=== PATIENT | male | born 1940 | race Caucasian/White ===

== ENCOUNTER → 2018-11-30 | Outpatient (CLI) | payer MEDICARE ==
[~2018-11-30] MED LIST: HYDR1TAB94 PO; TAMS.4ER PO
[2018-11-30 10:55] LABS: BASOPHILS ABSOLUTE AUTO 0.03 K/mm3 (0.00-0.23); BASOPHILS PERCENT AUTO 0 % (0-2); EOSINOPHILS ABSOLUTE AUTO 0.03 K/mm3 (0.00-0.68); EOSINOPHILS PERCENT AUTO 0 % (0-6); Hematocrit 41.8 % (37.0-53.0); Hemoglobin 13.7 g/dL (13.5-17.5); IMMATURE GRAN ABSOLUTE AUTO 0.03 K/mm3 (0.00-0.10); IMMATURE GRAN PERCENT AUTO 0 % (0-1); LYMPHOCYTES ABSOLUTE AUTO 1.68 K/mm3 (0.84-5.20); LYMPHOCYTES PERCENT AUTO 17 % (21-46); MONOCYTES ABSOLUTE AUTO 1.34 K/mm3 (0.16-1.47); MONOCYTES PERCENT AUTO 14 % (4-13); Mean Corpuscular HGB 32.2 pg (26.0-34.0); Mean Corpuscular HGB Conc 32.8 g/dL (31.5-36.5); Mean Corpuscular Volume 98 fL (80-100); Mean Platelet Volume 12.1 fL (9.1-12.4); NEUTROPHILS ABSOLUTE AUTO 6.66 K/mm3 (1.96-9.15); NEUTROPHILS PERCENT AUTO 68 % (41-73); Platelet Count 173 K/mm3 (150-400); RDW Coefficient Variation 13.4 % (11.7-14.2); RDW Standard Deviation 48.2 fL (35.1-46.3); Red Blood Cell Count 4.26 M/mm3 (4.30-5.90); White Blood Cell Count 9.77 K/mm3 (4.00-11.30)
[2018-11-30 11:05] LABS: Albumin, Blood 3.7 g/dL (3.4-5.0); Bilirubin, Total 0.5 mg/dL (0.1-1.0); Bun/Creatinine Ratio 21.1 (12.0-20.0); Calcium, Blood 8.8 mg/dL (8.5-10.1); Creatinine, Blood 1.66 mg/dL (0.60-1.20); Globulin, Blood 3.8 g/dL (2.2-4.0); Potassium, Blood 4.6 mmol/L (3.5-5.5); Total Protein, Blood 7.5 g/dL (6.4-8.2)
[2018-11-30 13:26] LABS: Source, Urine Clean Catch
[2018-11-30 13:47] LABS: Bacteria Few /hpf; Calcium Oxalate Crystals Few /hpf; Red Blood Cells, Urine 50-100 /hpf (0-2); Squamous Epithelial Cells Few /hpf (Few); Transitional Epithelial Cells Few /hpf (0-Rare)
== END | disposition home or self-care (01) ==
LOC: LAB EV 10:51 → LAB SHORT 10:51
PROVIDERS: Physician Assistant
DX: R10.31 Right lower quadrant pain (principal)
CPT/HCPCS: 80053; 81015; 83690; 85025; 87086

== ENCOUNTER 2019-04-06 06:56 | Day surgery (SDC) | payer MEDICARE ==
[~2019-04-06] VITALS: Ht 172.7 cm; Wt 66.4 kg
[~2019-04-06 06:56] MED LIST changes: +DULO60 PO; +Norco 10-325 T1 EACH PO; +Primidone50 MG PO; +TOPI25 PO
--- NOTE | 2019-04-06 07:54 | NUR ---
PT ADMITTED TO [facility]. AGREES WITH PLANNED SURGERY. LUNG SOUNDS CLEAR.
--- NOTE | 2019-04-06 10:26 | NUR ---
PT TO STEP DOWN FROM PACU VIA STRETCHER. REPORT RECEIVED FROM BRIGIDA JACKSON. PT AWAKE, ALERT, CONVERSING WITH STAFF. EATING ICE CHIPS AT THIS TIME. STATES PAIN IS 5/10 BUT UNCHANGED FROM PACU. PT RECEIVED IV FENTANYL JUST PRIOR TO ARRIVAL IN PACU.
--- NOTE | 2019-04-06 10:43 | NUR ---
PT SIPPING ON FLUIDS AT THIS TIME AND EATING PUDDING. NO C/O NAUSEA.
--- NOTE | 2019-04-06 10:50 | NUR ---
REVIEWED DC INSTRUCTIONS WITH PATIENT AND , BOTH OF WHOM VERBALIZE UNDERSTANDING OF ALL INSTRUCTIONS GIVEN.
--- NOTE | 2019-04-06 11:15 | NUR ---
IV DC TIP INTACT. PT AMBULATED TO BR WITH SBA - SLIGHTLY UNSTEADY ON FEET. HAS BASELINE ESSENTIAL TREMOR. PT DC HOME VIA WC WITH TO DRIVE HIM.
== END 2019-04-06 22:38 | disposition home or self-care (01) ==
LOC: ORSCMMR 06:56 → ORD 08:30 → ORSCMMR 22:38
PROVIDERS: Surgery
PROC: 0YU60JZ Supplement Left Inguinal Region with Synthetic Substitute, Open Approach (ICD-10-PCS; principal; 2019-04-06 08:30)
DX: K40.90 Unilateral inguinal hernia, without obstruction or gangrene, not specified as recurrent (principal); F17.210 Nicotine dependence, cigarettes, uncomplicated; J44.9 Chronic obstructive pulmonary disease, unspecified; Z79.899 Other long term (current) drug therapy
CPT/HCPCS: C1781; J0690; J1100; J2405; J2704; J3010; J7120

== ENCOUNTER 2019-06-10 12:05 | Inpatient (IN) | payer MEDICARE ==
[~2019-06-10] VITALS: Ht 170.2 cm; Wt 65.8 kg
[2019-06-10] MEDS ORDERED: FINASTERIDE1 MG PO (12:33)
[2019-06-10 12:55] LABS: BASOPHILS ABSOLUTE AUTO 0.02 K/mm3 (0.00-0.23); BASOPHILS PERCENT AUTO 0 % (0-2); EOSINOPHILS ABSOLUTE AUTO 0.01 K/mm3 (0.00-0.68); EOSINOPHILS PERCENT AUTO 0 % (0-6); Hematocrit 36.9 % (37.0-53.0); Hemoglobin 12.2 g/dL (13.5-17.5); IMMATURE GRAN ABSOLUTE AUTO 0.04 K/mm3 (0.00-0.10); IMMATURE GRAN PERCENT AUTO 0 % (0-1); LYMPHOCYTES ABSOLUTE AUTO 0.69 K/mm3 (0.84-5.20); LYMPHOCYTES PERCENT AUTO 7 % (21-46); MONOCYTES ABSOLUTE AUTO 0.59 K/mm3 (0.16-1.47); MONOCYTES PERCENT AUTO 6 % (4-13); Mean Corpuscular HGB 31.6 pg (26.0-34.0); Mean Corpuscular HGB Conc 33.1 g/dL (31.5-36.5); Mean Corpuscular Volume 96 fL (80-100); Mean Platelet Volume 11.7 fL (9.1-12.4); NEUTROPHILS ABSOLUTE AUTO 8.05 K/mm3 (1.96-9.15); NEUTROPHILS PERCENT AUTO 86 % (41-73); Platelet Count 278 K/mm3 (150-400); RDW Coefficient Variation 12.7 % (11.7-14.2); RDW Standard Deviation 44.8 fL (35.1-46.3); Red Blood Cell Count 3.86 M/mm3 (4.30-5.90)
[2019-06-10 13:18] LABS: Albumin, Blood 2.9 g/dL (3.4-5.0); Albumin/Globulin Ratio 0.7 (0.8-1.8); Bilirubin, Total 0.5 mg/dL (0.1-1.0); Bun/Creatinine Ratio 9.1 (12.0-20.0); Calcium, Blood 8.6 mg/dL (8.5-10.1); Globulin, Blood 4.4 g/dL (2.2-4.0); Potassium, Blood 7.5 mmol/L (3.5-5.5); Total Protein, Blood 7.3 g/dL (6.4-8.2)
[2019-06-10 13:40] LABS: Source, Urine Clean Catch
[2019-06-10 13:43] LABS: Magnesium, Blood 4.7 mg/dL (1.6-2.4)
[2019-06-10 13:45] LABS: Bilirubin, Urine Neg (Neg); Blood, Urine 3+ (Neg); Glucose Qualitative, Urine Neg (Neg); Ketones, Urine Neg (Neg); Leukocyte Esterase, Urine Neg (Neg); Nitrite, Urine Neg (Neg); Protein, Urine Neg (Neg); Urobilinogen, Urine NORM (Normal)
[2019-06-10 13:45] LABS: Phosphorus, Blood 8.9 mg/dL (2.5-4.9)
[2019-06-10 13:55] LABS: Appearance, Urine Clear (Clear); Color, Urine Yellow (P-Yellow)
[2019-06-10 13:56] LABS: White Blood Cells, Urine Not Seen /hpf (0-5)
[2019-06-10 13:57] LABS: Bacteria Rare /hpf; Squamous Epithelial Cells Not Seen /hpf (Few)
[2019-06-10 14:03] LABS: U Amphetamine Screen Not Detected; U Barbituate Screen DETECTED; U Benzodiazapine Screen Not Detected; U Buprenorphine Screen Not Detected; U Cannabinoids Screen Not Detected; U Cocaine Screen Not Detected; U Methadone Screen Not Detected; U Methamphetamine Screen Not Detected; U Opiates Screen DETECTED; U Oxycodone Screen Not Detected; U Phencyclidine Screen Not Detected; U Propoxyphene Screen Not Detected
[2019-06-10] MEDS ORDERED: FINA5 PO (14:06)
[2019-06-10] MEDS ORDERED: TAMS.4ER PO (14:10)
[2019-06-10] MEDS ORDERED: DULO30 PO (14:10)
--- NOTE | 2019-06-10 16:30 | NUR ---
ARRIVAL TO ICU PT TO ICU 2 APPROX 1610 PER BRAND LEAD RN'S. PT ALERT, BUT CONFUSED. ABLE TO STATE HIS NAME BUT THINKS HE WAS BORN IN 1995. DOES NOT ANSWER QUESTIONS ABOUT LOCATION. FIXATED ON BLOOD PRESSURE, ATTEMPTING TO ASK QUESTIONS REGARDING IT BUT NOT ABLE TO GET COMPLETE SENTENCES OUT. FOLLOWING SOME DIRECTIONS. STRENGTH EQUAL BILATERALLY. PT NOTED TO HAVE INTERMITTENT FULL BODY TWITCHING MOVEMENTS. CT OF HEAD PENDING. VITALS STABLE. BRONSON SECURED AND DRAINING LARGE AMOUNTS OF CLEAR, YELLOW URINE.
--- NOTE | 2019-06-10 16:40 | NUR ---
DIALYSIS DR CISNEROS CALLED I WAS LEAVING. SAID THIS PT WAS IN THE ER AND GETTING A CATH PLACED BY DR COTA SOON. HAD A K+ OF 7.5. CALLED THE FITTING SUPERVISOR AND FOUND OUT HE WAS GOING IN AT ABOUT [phone]. CHECKED WITH RN ACADEMIC SPECIALIST. HE WAS UNAWARE OF PT. HE CALLED ME BACK SAYING PT WOULD BE PLACED IN ICU 2. SET UP MACHINE. TOLD PT WAS IN ICU. STARTED DOWN THE DAVIS, WHEN I SAW DR CISNEROS. HE SAID PT HAD A BLOCKAGE AND WAS URINATING A LARGE AMT OF URINE. A STAT REMAL WAS ORDERED AND I AM TO WAIT FOR THE RESULTS.
--- NOTE | 2019-06-10 16:40 | NUR ---
DR. CISNEROS AT BEDSIDE DR. CISNEROS AT BEDSIDE FOR ASSESSMENT. NEW ORDER FOR STAT RENAL FUNCTION PANEL AND TO HOLD DIALYSIS UNTIL LAB RESULTS ARE RETURNED AND REPORTED TO MD. ORDER PLACED, LAB TO BEDSIDE TO DRAW.
--- NOTE | 2019-06-10 17:00 | NUR ---
ADMISSION HISTORY & MED REC ADMISSION HISTORY AND MEDICATION RECONCILIATION COMPLETED WITH ASSISTANCE FROM PT'S , CONSUELO. SHE CAN BE REACHED FOR FURTHER QUESTIONS AND FOR UPDATES AT [phone].
[2019-06-10 17:23] LABS: Albumin, Blood 3.1 g/dL (3.4-5.0); Anion Gap 15 mmol/L (6-16); Blood Urea Nitrogen 127 mg/dL (8-24); Bun/Creatinine Ratio 10.9 (12.0-20.0); CO2, Blood 18 mmol/L (21-32); Calcium, Blood 9.1 mg/dL (8.5-10.1); Chloride, Blood 101 mmol/L (98-108); Glomerular Filtration Rate 5 (60-); Glucose, Blood 116 mg/dL (70-99); Phosphorus, Blood 6.9 mg/dL (2.5-4.9); Sodium, Blood 134 mmol/L (136-145)
--- NOTE | 2019-06-10 17:28 | NUR ---
DR. CISNEROS COMMUNICATION PROVIDED DR. CISNEROS WITH MOST RECENT LAB RESULTS PER REQUEST. ORDER TO DECREASE SODIUM BICARBONATE DRIP TO 75 ML/HR, CANCEL DIALYSIS FOR TODAY, CONTINUE TO MONITOR URINE OUTPUT CLOSELY.
--- NOTE | 2019-06-10 18:35 | NUR ---
SUMMARY PT HAS CONTINUED TO BE CONFUSED. WHEN ATTEMPTING TO ASK PATIENT ORIENTATION QUESTIONS, PT BECOMES FRUSTRATED AND SAYS "YES I KNOW." BUT REFUSES TO ARTICULATE THE ANSWERS. PT FOLLOWING SOME DIRECTIONS. ESSENTIAL TREMORS NOTED THROUGHOUT WHICH IS HIS BASELINE PER . VITALS STABLE. BRONSON HAS HAD OVER 3 L OUTPUT SINCE ARRIVAL TO ICU. SEE PREVIOUS NOTES FOR OTHER UPDATES.
--- NOTE | 2019-06-10 19:01 | NUR ---
BEDSIDE REPORT TO BRIGIDA HAZEL AND BRIGIDA LOCKWOOD TO ASSUME CARE
--- NOTE | 2019-06-10 21:30 | NUR ---
ASSUMED CARE OF PT AT 1900. PT IS ALERT, BUT NOT ORIENTED TO DATE. HE WAS ABLE TO STATE HOSPITAL AND LOCATION, BUT NOT WHY SPECIFICALLY THIS TIME ADMITTED. FOLLOWS SOME COOMANDS, BUT NOT OTHERS, MANY REQUIRED DEMONSTRATION TO FOLLOW. PT STATES HE WALKS FINE AT HOME, BUT BLE IS 3/6 STRENGTH, CANNOT RAISE OFF BED AGAINST GRAVITY, BUT CAN SLOW FALL TO BED. BUE FULL STRENGTH, BUT HAS MINIMAL ESSENTIAL TREMORS.
[2019-06-11 04:01] LABS: BASOPHILS ABSOLUTE AUTO 0.02 K/mm3 (0.00-0.23); BASOPHILS PERCENT AUTO 0 % (0-2); EOSINOPHILS PERCENT AUTO 0 % (0-6); Hematocrit 39.9 % (37.0-53.0); Hemoglobin 13.1 g/dL (13.5-17.5); IMMATURE GRAN ABSOLUTE AUTO 0.02 K/mm3 (0.00-0.10); IMMATURE GRAN PERCENT AUTO 0 % (0-1); LYMPHOCYTES PERCENT AUTO 13 % (21-46); MONOCYTES ABSOLUTE AUTO 1.05 K/mm3 (0.16-1.47); MONOCYTES PERCENT AUTO 15 % (4-13); Mean Corpuscular HGB 30.6 pg (26.0-34.0); Mean Corpuscular HGB Conc 32.8 g/dL (31.5-36.5); Mean Corpuscular Volume 93 fL (80-100); Mean Platelet Volume 11.4 fL (9.1-12.4); NEUTROPHILS ABSOLUTE AUTO 5.15 K/mm3 (1.96-9.15); NEUTROPHILS PERCENT AUTO 72 % (41-73); Platelet Count 314 K/mm3 (150-400); RDW Coefficient Variation 12.6 % (11.7-14.2); RDW Standard Deviation 43.1 fL (35.1-46.3); Red Blood Cell Count 4.28 M/mm3 (4.30-5.90); White Blood Cell Count 7.14 K/mm3 (4.00-11.30)
[2019-06-11 04:24] LABS: Magnesium, Blood 2.9 mg/dL (1.6-2.4)
[2019-06-11 04:28] LABS: Alanine Aminotransfer (ALT/SGP 55 U/L (12-78); Albumin, Blood 3.2 g/dL (3.4-5.0); Albumin/Globulin Ratio 0.7 (0.8-1.8); Alk Phos 81 U/L (50-136); Anion Gap 9 mmol/L (6-16); Aspartate Aminotrans (AST/SGOT 50 U/L (12-37); Bilirubin, Total 0.5 mg/dL (0.1-1.0); Blood Urea Nitrogen 58 mg/dL (8-24); Bun/Creatinine Ratio 19.1 (12.0-20.0); CO2, Blood 26 mmol/L (21-32); Calcium, Blood 9.3 mg/dL (8.5-10.1); Chloride, Blood 110 mmol/L (98-108); Creatinine, Blood 3.04 mg/dL (0.60-1.20); Globulin, Blood 4.4 g/dL (2.2-4.0); Glomerular Filtration Rate 21 (60-); Glucose, Blood 126 mg/dL (70-99); Potassium, Blood 3.6 mmol/L (3.5-5.5); Total Protein, Blood 7.6 g/dL (6.4-8.2)
[2019-06-11 04:29] LABS: Sodium, Blood 145 mmol/L (136-145)
--- NOTE | 2019-06-11 06:06 | NUR ---
Pt awake most of evening. Pt is alert, but not oriented. Dr. Haynes visited pt this am, and explained plan of care. Re-explained to pt what doctor had said, pt asked questions. Pt needs reinforcing education on home care of herrera catheter, and benefit of additional day stay. Pt understood doctor had said that pt would come back for more testing after hospital stay, due to prostate issues. Pt eating with good appetite, drinking plenty of ice water. Pt called at 0230 for reassurance. Pt upset that wasn't at bedside, and had questions about covid-19, as seen on the news channel on in his room. Pt stated he hadn't heard of it. However, pt was able to remember the previous orientation questions from beginning of shift. He pointed to TV (President [place] address) and stated "see I know who the president is, that's him". Pt is hard of hearing, and has hearing aid in. Pt following more commands in am, than previous evening. Pt also able to lift legs off bed better during evening than at start of night.
--- NOTE | 2019-06-11 09:00 | NUR ---
ASSUMED CARE RECEIVED REPORT FROM AARON ALLRED. PT IS SITTING UP IN BED WATCHING TV. HE APPEARS TO BE ORIENTED TO LOCATION, SELF, AND SOMEWHAT OF HIS SITUATION. HE IS WANTING TO LEAVE NOW. NO AGITATION THOUGH AT THE MOMENT. HE APPEARS TO HAVE SOME CONFUSION WITH SOME OF THE THINGS HE SAYS. HE HAS A BRONSON CATHETER, PATENT AND DRAINING YELLOW-CARLOS URINE. HE HAS A HD CATHETER IN HIS RIGHT UPPER CHEST, SITE APPEARS CDI. HE HAS BILATERAL SCD'S IN PLACE. HE IS IN A SINUS RHYTHM, RATE IN THE 90'S, LAST BP 159/73, SAT'ING 97% ON RA. BED LOW AND LOCKED. CALL LIGHT WITHIN REACH.
--- NOTE | 2019-06-11 14:48 | NUR ---
PT LEFT FLOOR TO MEDICAL FLOOR 247 VIA WHEELCHAIR. PT WAS IN SINUS RHYTHM, RATE IN THE 80'S. SATS HIGH 90'S ON ROOM AIR. PT ALERT AND ORIENTED TO SELF, SITUATION, SURROUNDINGS, AND TIME.
--- NOTE | 2019-06-11 17:30 | NUR ---
SHIFT SUMMARY 1445 RECEIVED PT TO RM 347 FROM ICU VIA W/C. PT ABLE TO TX SELF TO CHAIR AT BS, PER PT REQUEST. CHAIR ALARM PLACED D/T PT'S CONFUSION AND NOT WANTING TO USE CALL LT FOR ASSIST. PER REPORT, PT ADMITTED FOR BL URETER NEPHROSIS D/T ENLARGED PROSTRATE; 11L OF URINE OUT AFTER BRONSON PLACED. PER REPORT, PT TO GO HOME WITH BRONSON UNTIL SEEING UROLOGY OUTPT. DR BRAY NOTIFIED FOR BRONSON ORDER. PT WITH TREMORS AT BASELINE WELL FORGETFUL; POSSIBLE DEMENTIA. ASSISTED PT IN USING PHONE TO CALL . NO C/O. CALL LT IN REACH. BED ALARM ON FOR SAFETY.
[2019-06-12 03:10] LABS: HBSAG SCREEN Negative (Negative); HEP A AB, IGM Negative (Negative); HEP B CORE AB, IGM Negative (Negative); HEP C VIRUS AB 0.3 (0.0-0.9)
--- NOTE | 2019-06-12 04:58 | NUR ---
06/12/19 0450 PT SLEEPING. HE HAD BEEN UP WATCHING TV UNTIL 3:30 AM. VITALS REMAIN STABLE. DENIED ANY DISCOMFORT OR S/S. BRONSON PATENT AND DRAINING CLEAR,YELLOW URINE. TURNED Q 2 HOURS BUT DID REFUSE TWICE TO TURN ON SIDE. IV FLUIDS RUNNING AT 75 ML/HOUR.
[2019-06-12 06:21] LABS: Albumin, Blood 2.9 g/dL (3.4-5.0); Anion Gap 7 mmol/L (6-16); Blood Urea Nitrogen 13 mg/dL (8-24); Bun/Creatinine Ratio 21.6 (12.0-20.0); CO2, Blood 26 mmol/L (21-32); Calcium, Blood 8.9 mg/dL (8.5-10.1); Chloride, Blood 108 mmol/L (98-108); Glomerular Filtration Rate >60 (60-); Glucose, Blood 108 mg/dL (70-99); Magnesium, Blood 1.6 mg/dL (1.6-2.4); Potassium, Blood 3.3 mmol/L (3.5-5.5); Sodium, Blood 141 mmol/L (136-145)
[2019-06-12 06:26] LABS: Phosphorus, Blood 2.1 mg/dL (2.5-4.9)
[2019-06-12] MEDS ORDERED: POTA10T PO (13:22)
--- NOTE | 2019-06-12 15:50 | NUR ---
Discharge Summary A/Ox2-3, pleasant and cooperative with care. Pt d/c home with herrera in place and to transport. Escorted out via w/c by this RN, discharge paperwork reviewed with (Hilary) and patient, questions were answered. Belongings sent home. Hilary's cell . Patient is to call and schedule appt with Urologist in [place] (Dr. Kali Prieto) for herrera management. Dr. Cortez's office to call and schedule outpatient perma-cath removal. IV removed, WNL. Education RE permacath, herrera, and new meds were reviewed with both and patient.
== END 2019-06-12 15:41 | disposition home or self-care (01) | DRG 673 ==
LOC: ER 12:05 → ICUW 15:26 → MEDS 15:26 → ICUE 15:26 → MEDS 06-11 14:42
PROVIDERS: Emergency Medicine; Internal Medicine Nephrology; Physician Assistant; ADMIT Internal Medicine
PROC: 0JH63XZ Insertion of Tunneled Vascular Access Device into Chest Subcutaneous Tissue and Fascia, Percutaneous Approach (ICD-10-PCS; principal; 2019-06-10)
PROC: B513YZA Fluoroscopy of Right Jugular Veins using Other Contrast, Guidance (ICD-10-PCS; 2019-06-10)
PROC: 0T9B70Z Drainage of Bladder with Drainage Device, Via Natural or Artificial Opening (ICD-10-PCS; 2019-06-10)
PROC: 05HM33Z Insertion of Infusion Device into Right Internal Jugular Vein, Percutaneous Approach (ICD-10-PCS; 2019-06-10)
DX: N17.9 Acute kidney failure, unspecified (principal); G93.41 Metabolic encephalopathy; E87.2 Acidosis; E87.1 Hypo-osmolality and hyponatremia; N13.9 Obstructive and reflux uropathy, unspecified; N13.30 Unspecified hydronephrosis; E87.5 Hyperkalemia; N40.1 Benign prostatic hyperplasia with lower urinary tract symptoms; D64.9 Anemia, unspecified; G25.0 Essential tremor; J43.9 Emphysema, unspecified; Z87.442 Personal history of urinary calculi; E87.6 Hypokalemia; I12.9 Hypertensive chronic kidney disease with stage 1 through stage 4 chronic kidney disease, or unspecified chronic kidney disease; N18.9 Chronic kidney disease, unspecified; E86.9 Volume depletion, unspecified; F17.210 Nicotine dependence, cigarettes, uncomplicated; G89.29 Other chronic pain
CPT/HCPCS: 36415; 36558; 51702; 70450; 74176; 76937; 80053; 80069; 80074; 81001; 83735; 84100; 85018; 85025; 86317; 93005; 93010; 94644; 96361-59; 96374-59; 96375-59; 99285-25; C1750; C1769; G0103; J0610; J1644; J1815; J7030; J7040; J7060; J7070

== ENCOUNTER → 2020-01-12 | Outpatient (CLI) | payer MEDICARE ==
[~2020-01-12] MED LIST changes: +DULO30 PO; +FINA5 PO; +FINASTERIDE1 MG PO; +POTA10T PO
== END | disposition home or self-care (01) ==
LOC: PLD 13:21 → LAB SHORT 13:21
DX: D04.4 Carcinoma in situ of skin of scalp and neck (principal)
CPT/HCPCS: 88305

== ENCOUNTER → 2021-06-29 | Outpatient (CLI) | payer MEDICARE | END | disposition home or self-care (01) | LOC: LAB SHORT 12:46 | DX: C44.42 Squamous cell carcinoma of skin of scalp and neck (principal); C44.41 Basal cell carcinoma of skin of scalp and neck; L57.0 Actinic keratosis | CPT/HCPCS: 88305 ==

== ENCOUNTER → 2021-08-02 | Outpatient (CLI) | payer MEDICARE | END | disposition home or self-care (01) | LOC: LAB 14:42 → LAB SHORT 14:42 | DX: C44.42 Squamous cell carcinoma of skin of scalp and neck (principal) | CPT/HCPCS: 88305 ==

== ENCOUNTER → 2021-08-16 | Outpatient (CLI) | payer MEDICARE | END | disposition home or self-care (01) | LOC: PLD 14:52 → LAB 14:52 → LAB SHORT 14:52 | DX: C44.41 Basal cell carcinoma of skin of scalp and neck (principal) | CPT/HCPCS: 88305 ==

== ENCOUNTER → 2022-05-02 | Outpatient (CLI) | payer MEDICARE | END | disposition home or self-care (01) | LOC: LAB SHORT 12:44 → LAB 12:44 | DX: C44.212 Basal cell carcinoma of skin of right ear and external auricular canal (principal) | CPT/HCPCS: 88305 ==

== ENCOUNTER → 2022-05-30 | Outpatient (CLI) | payer MEDICARE | END | disposition home or self-care (01) | LOC: LAB SHORT 08:10 → PLD 08:10 | DX: C44.41 Basal cell carcinoma of skin of scalp and neck (principal) | CPT/HCPCS: 88305 ==

== ENCOUNTER → 2025-01-12 | Outpatient (CLI) | payer MEDICARE ==
[2025-01-13 12:19] LABS: BASOPHILS ABSOLUTE AUTO 0.05 K/mm3 (0.00-0.23); BASOPHILS PERCENT AUTO 1 % (0-2); EOSINOPHILS ABSOLUTE AUTO 0.24 K/mm3 (0.00-0.68); EOSINOPHILS PERCENT AUTO 3 % (0-6); Hematocrit 46.4 % (37.0-53.0); Hemoglobin 15.2 g/dL (13.5-17.5); IMMATURE GRAN ABSOLUTE AUTO 0.03 K/mm3 (0.00-0.10); IMMATURE GRAN PERCENT AUTO 0 % (0-1); LYMPHOCYTES ABSOLUTE AUTO 2.45 K/mm3 (0.84-5.20); LYMPHOCYTES PERCENT AUTO 34 % (21-46); MONOCYTES ABSOLUTE AUTO 0.95 K/mm3 (0.16-1.47); MONOCYTES PERCENT AUTO 13 % (4-13); Mean Corpuscular HGB Conc 32.8 g/dL (31.5-36.5); Mean Corpuscular Volume 100 fL (80-100); NEUTROPHILS ABSOLUTE AUTO 3.52 K/mm3 (1.96-9.15); NEUTROPHILS PERCENT AUTO 49 % (41-73); NRBC ABSOLUTE 0.00 K/mm3 (0.00-0.02); NRBC Auto 0.0 /100 WBC (0.0-0.2); Platelet Count 207 K/mm3 (150-400); RDW Coefficient Variation 14.1 % (11.7-14.2); RDW Standard Deviation 52.3 fL (35.1-46.3)
== END | disposition home or self-care (01) ==
LOC: LAB SHORT 16:00 → LAB 16:00
PROVIDERS: Internal Medicine Hematology & Oncology
DX: D72.821 Monocytosis (symptomatic) (principal); D75.89 Other specified diseases of blood and blood-forming organs; E53.8 Deficiency of other specified B group vitamins
CPT/HCPCS: 82607; 82746; 85025; 85060